=== PATIENT | female | born 1955 | race Caucasian/White ===

== ENCOUNTER → 2018-11-01 | Day surgery (SDC) | payer MEDICARE, OTHER ==
--- NOTE | 2018-11-04 12:03 | PATH ---
Cytology Non-Gynecological Report Patient Name: SHIRA MILES [facility]. Rec. #: [id number] /Age/Gender: 1955 (Age: 63) / F Account: [id number] Location: RADIOLOGY INTER Taken: 11/01/2018 Received: 11/02/2018 Reported: 11/04/2018 Physicians: Herb Christopher M.D., M.D. Specimen(s) Received RIGHT THYROID FNA Clinical History Thyroid nodule Final Diagnosis THYROID, RIGHT, FINE NEEDLE ASPIRATION: SATISFACTORY FOR EVALUATION. BETHES[place] III: ATYPIA OF UNDETERMINED SIGNIFICANCE. CLUSTERS OF ATYPICAL FOLLICULAR CELLS WITH NUCLEAR ENLARGEMENT, SUBTLE NUCLEAR GROOVES, AND FOCAL CROWDING ASSOCIATED WITH SCANT THICK COLLOID. Electronically Signed Martina Yeboah M.D. Gross Description Received are eight direct smears, four of which are air-dried and Diff-Quik stained, and four of which are alcohol fixed and Pap stained. Also received is 20 ml of bloody formalin from which one cellblock is prepared.
== END | disposition home or self-care (01) ==
LOC: JRADIR 10:16
PROVIDERS: ATTEND Internal Medicine Endocrinology, Diabetes & Metabolism
PROC: 0G9K3ZX Drainage of Thyroid Gland, Percutaneous Approach, Diagnostic (ICD-10-PCS; principal; 2018-11-01)
DX: E04.1 Nontoxic single thyroid nodule (principal)
CPT/HCPCS: 76942; 88173; 88305-TC